=== PATIENT | male | born 1990 | race African-American/Black ===

== ENCOUNTER 2023-12-05 15:31 | Emergency (ER) | payer SELFPAY ==
[2023-12-05 15:47] VITALS: BP 135/86
--- NOTE | 2023-12-05 16:27 | ED.GENMED ---
History of Present Illness
General
Chief Complaint: Musculo-Skeletal Complaint
Time Seen by Provider: 12/05/23 16:08
History of Present Illness
History of Present Illness:
33-year-old male presents to the emergency department for evaluation of a suspected Achilles tendon rupture on the right. He was shooting basketball when he felt a sudden pop in the right heel. He is not able to bear weight.
Review of Systems
Review of Systems
Allergies reviewed?: Yes
All Other Systems: ROS reviewed and negative except as documented in HPI and ROS
Phy Exam
Physical Exam
Physical Exam:
GEN: Well appearing, NAD, WDWN
HEENT: Oral mucosa moist, no scleral icterus
Cardiac: Regular rate
Lung: No respiratory distress, no tachypnea
MSK: No gross deformity or injuries. Palpable defect of the distal right Achilles tendon with a positive Medina test, no bony tenderness to the foot or ankle
Skin: Good color, no pallor or jaundice, no rashes
Neuro: AO x3, moves all extremities freely
Psych: Calm, cooperative
Course
Orders/Labs/Results
Orders:
Orders
12/05/23 16:32
CR Heel/os Calcis - Right 2 Vw Urgent
Comment:
Reason For Exam: Achilles' injury
Vital Signs
Initial and Last Documented VS:
Initial Vital Signs
Temp Pulse Resp BP Pulse Ox
98.2 F 97 20 135/86 99
12/05/23 15:47 12/05/23 15:47 12/05/23 15:47 12/05/23 15:47 12/05/23 15:47
Last Documented Vital Signs
Temp Pulse Resp BP Pulse Ox
98.2 F 97 20 135/86 99
12/05/23 15:47 12/05/23 15:47 12/05/23 15:47 12/05/23 15:47 12/05/23 15:47
MDM/Problems Addressed
MDM/Problems Addressed:
Exam findings consistent with Achilles tendon rupture, potentially partial given the palpable Achilles tendon. Will place in orthopedic boot to maintain neutral position, crutches with weightbearing as tolerated, orthopedic follow-up
*Critical Care Note
Total Time (30-74mins, 75-104mins- exclusive of procedures): Not Applicable
ED Attending Note
-
Portions of this chart may have been created with voice recognition software.� Occasional wrong word or��sound alike� substitutions may have occurred due to the inherent limitations of voice recognition software.
Discharge Plan
Departure
Patient Disposition: Home (Routine Discharge)
Date of Disposition: 12/05/23
Time of Disposition: 17:05
Patient with high blood pressure during this ER visit?: No
Discharge Problem:
Rupture of right Achilles tendon
Instructions: Achilles Tendon Rupture (DC)
Referrals:
Jonathan Childress MD [Active] - Call in 1-3 days for appt
Stand Alone Forms: Return to Work
Interventions
Interventions:
*Risk Screen - Suicide Last Done: 12/05/23 15:47
*General Assessment Last Done: 12/05/23 15:47
*Neglect/Abuse Screening Last Done: 12/05/23 15:47
ED- Fall Risk Assessment Last Done: 12/05/23 17:36
*ED COVID-19 Vaccine History Last Done: 12/05/23 17:36
*Nursing Disposition Last Done: 12/05/23 17:36
ED-Musculoskeletal Assessment Last Done: 12/05/23 17:36
Discharge Date and Time
Discharge Date/Time: 12/05/23 17:37
Print Language: BENGALI
== END 2023-12-05 17:37 | disposition home or self-care (01) ==
LOC: EMR 15:31
PROVIDERS: EMERGENCY PHYSICIAN Emergency Medicine
DX: S86.011A Strain of right Achilles tendon, initial encounter (principal); X50.1XXA Overexertion from prolonged static or awkward postures, initial encounter
CPT/HCPCS: 99283; 73650

== ENCOUNTER 2023-12-10 06:21 | Day surgery (SDC) | payer MEDICARE, SELFPAY ==
[2023-12-10] VITALS (9 sets, daily range): BP systolic 118–140; BP diastolic 64–87; BMI 27.7
[2023-12-10] MEDS: TYLENOL 1000 MG PO (06:30)
[2023-12-10] MEDS: CELEBREX 200 MG PO (06:30)
[2023-12-10] MEDS: NORMOSOL-R/PLASMALYTE-A 1000 IV (06:40)
[2023-12-10] MEDS: SUBLIMAZE 50 MCG IV ×2 (09:19→09:34)
[2023-12-10] MEDS: ROXICODONE 5 MG PO (10:14)
== END 2023-12-10 11:05 | disposition home or self-care (01) ==
LOC: SDS 06:21
PROVIDERS: ATTENDING PHYSICIAN Student in an Organized Health Care Education/Training Program
DX: S86.011A Strain of right Achilles tendon, initial encounter (principal); X50.0XXA Overexertion from strenuous movement or load, initial encounter
CPT/HCPCS: 27650; C1776